=== PATIENT | male | born 1990 ===

== ENCOUNTER 2023-04-17 02:12 | Inpatient (IN) | payer OTHER ==
[2023-04-17] MEDS ORDERED: Fentanyl CADD 100 ML IV SCH (02:30)
[2023-04-17 02:33] LABS: #Eosinphils 0.1 thou/uL (0.0-0.7); #Monocytes 0.3 thou/uL (0.11-0.59); #Neutrophils 4.3 thou/uL (1.40-6.50); %Basophils 0.5 % (0.0-1.0); %Eosinophils 0.8 % (0.0-10.0); %Lymphocytes 22.1 % (21.0-51.0); %Neutrophils 71.1 % (42.0-75.0); Hematocrit 40.7 % (42.0-52.0); Hemoglobin 13.9 g/dL (14.0-18.0); Mean Corpuscular HGB CONC 34.2 g/dL (32.0-36.0); Mean Corpuscular Hemoglobin 28.8 pg (27.0-31.0); Mean Corpuscular Volume 84.3 fl (78.0-98.0); Mean Platelet Volume 9.1 fL (7.4-10.4); Platelet Count 174 10x3/uL (130-400); Red Blood Cell (RBC) Count 4.83 mill/uL (4.70-6.10)
[2023-04-17] MEDS ORDERED: Dextrose 50% Abboject 50 ML SYRINGE SLOW IVP PRN (02:40)
[2023-04-17] MEDS ORDERED: TETANUS, DIPHTHERIA TOX,ADULT (TDVAX) 0.5 ML VIAL IM ONE (02:40)
[2023-04-17] MEDS ORDERED: Glucagon 1 MG/ML KIT IM PRN (02:40)
[2023-04-17] MEDS ORDERED: Dextrose 5% in Water 1,000 ML IV PRN (02:40)
[2023-04-17] MEDS ORDERED: FENTANYL 500 MCG/10 ML VIAL 2,000 MCG in Sodium Chloride 0.9% 60 ML IV PRN (02:43)
[2023-04-17 02:46] LABS: Prothrombin Time 13.9 sec (12.0-14.7)
[2023-04-17 02:49] LABS: ALT (SGPT) 22 U/L (8-55); AST (SGOT) 30 U/L (5-34); Albumin 4.7 g/dL (3.5-5.0); Alcohol 269.9 mg/dL (Less than 10); Alkaline Phosphatase 77 U/L (40-110); Anion Gap 20 mmol/L (10-20); BUN (Urea Nitrogen) 15 mg/dL (8.9-20.6); Bilirubin, Total 0.5 mg/dL (0.2-1.2); Calc. Creatinine Clearance 0 mL/min (70-130); Calcium 8.9 mg/dL (7.8-10.44); Carbon Dioxide 16 mmol/L (22-29); Chloride 109 mmol/L (98-107); Estimated GFR 118; Globulin 2.6 g/dL (2.4-3.5); Glucose 144 mg/dL (70-105); Potassium 3.7 mmol/L (3.5-5.1); Protein, Total 7.3 g/dL (6.0-8.3); Sodium 141 mmol/L (136-145)
[2023-04-17] MEDS ORDERED: Boostrix 0.5 ML (Tdap) VIAL (>/=7 yrs of age) ONE (02:57)
[2023-04-17 03:01] LABS: PTT 22.3 sec (22.9-36.1)
[2023-04-17 03:09] LABS: Actual Bicarbonate (HCO3a) 19.3 mEq/L (22-28); Analyzer IN Cardio ER; Base Excess (BEa) -5.8 mEq/L (-2.0 to +3.0); CO2 Tension 36.9 mmHg (35.0-45.0); Calcium, Ionized (arterial) 1.15 mmol/L (1.12-1.30); Carboxyhemoglobin (COHb) 0.3 gm% (0.0-3.0); Hematocrit-ABG 44 % (42.0-52.0); Hemoglobin (Hb) 15.1 g/dL (14.0-18.0); O2 Tension (PaO2), arterial 338.1 mmHg (80.0-100.0); Potassium - ABG Lab 3.84 mmol/L (3.70-5.30); pH, Arterial 7.336 (7.35-7.45)
[2023-04-17] MEDS ORDERED: levETIRAcetam 500 MG/5 ML VIAL ONE (03:17)
[2023-04-17] MEDS ORDERED: manNITOL 20% 500 ML ONE (03:17)
[2023-04-17] MEDS ORDERED: Mannitol 12.5 GM/50 ML ONE (03:17)
[2023-04-17 03:18] LABS: ALV-art Gradient 328.775 mmHg (0-20); Puncture Site RRA
[2023-04-17] MEDS ORDERED: Thrombin 5000 UNITS/5 ML VIAL ONE ×2 (03:22→04:55)
[2023-04-17] MEDS ORDERED: Bacitracin Zinc Ointment 30 gm TUBE ONE (03:22)
[2023-04-17] MEDS ORDERED: Lidocaine 1% (PF) 30 ML VIAL ONE (03:25)
[2023-04-17] MEDS ORDERED: EPINEPHrine 1 MG/ML AMP ONE (03:25)
[2023-04-17] MEDS ORDERED: Rocuronium Bromide 50 MG/5 ML VIAL ONE (03:50)
[2023-04-17] MEDS ORDERED: Midazolam HCl 2 mg/2 ml Vial ONE (03:50)
[2023-04-17] MEDS ORDERED: Fentanyl 250 MCG/5 ML VIAL ONE (03:51)
[2023-04-17] MEDS ORDERED: PROPOFOL 200 MG/20 ML VIAL ONE (04:04)
[2023-04-17] MEDS ORDERED: Vecuronium 10 MG VIAL ONE (04:04)
[2023-04-17] MEDS ORDERED: Rocuronium Bromide 10 MG/ML (10ML VIAL) ONE (04:04)
[2023-04-17] MEDS ORDERED: Ventilator Sedation Protocol 1 EACH FS ONE (05:41)
[2023-04-17] MEDS ORDERED: Electrolyte Replacement Protocol 1 EACH FS PRN (05:45)
[2023-04-17] MEDS ORDERED: Propofol 1,000 MG/100 ML VIAL IV ONE (05:47)
[2023-04-17] MEDS ORDERED: Fentanyl BOLUS 250 ML IVPB PRN (06:00)
[2023-04-17] MEDS ORDERED: DISCONTINUE PREVIOUS NARCOTIC PAIN MEDICATIONS AND BENZODIAZEPINES FS SCH (06:00)
[2023-04-17] MEDS ORDERED: Propofol BOLUS 1,000 MG/100 ML VIAL IV PRN (06:00)
[2023-04-17] MEDS: Ipratropium/Albuterol 3 ML NEB NEB SCH ×3 (06:55→17:16)
[2023-04-17 07:31] LABS: Actual Bicarbonate (HCO3a) 16.9 mEq/L (22-28); Analyzer IN Cardio ER; Base Excess (BEa) -8.1 mEq/L (-2.0 to +3.0); CO2 Tension 33.4 mmHg (35.0-45.0); Calcium, Ionized (arterial) 1.14 mmol/L (1.12-1.30); Carboxyhemoglobin (COHb) 0.3 gm% (0.0-3.0); Hematocrit-ABG 42 % (42.0-52.0); Hemoglobin (Hb) 14.4 g/dL (14.0-18.0); O2 Tension (PaO2), arterial 148.3 mmHg (80.0-100.0); Potassium - ABG Lab 3.83 mmol/L (3.70-5.30); pH, Arterial 7.322 (7.35-7.45)
[2023-04-17] MEDS: Morphine 2 MG/ML VIAL SLOW IVP PRN (07:39)
[2023-04-17] MEDS: levETIRAcetam 500 MG/5 ML VIAL SLOW IVP SCH ×2 (07:40→21:30)
[2023-04-17] MEDS: Pantoprazole 40 MG VIAL IVP SCH (07:40)
[2023-04-17 07:44] LABS: Puncture Site Arterial Line
[2023-04-17] MEDS: Fentanyl CADD 100 ML IV SCH ×3 (08:02→23:08)
[2023-04-17] MEDS: Sodium Chloride 0.9% 1,000 ML IV SCH ×3 (08:47→21:58)
[2023-04-17] MEDS: CEFAZOLIN 2 GM in Sodium Chloride 0.9% 100 ML IVPB SCH ×3 (08:49→21:30)
[2023-04-17] MEDS: Propofol 1,000 MG/100 ML VIAL IV PRN ×5 (09:41→21:57)
[2023-04-17] MEDS ORDERED: Iopamidol-370 76% 500 ML MDV (1 ML CHARGE) ONE (10:43)
[2023-04-17 12:24] LABS: Anion Gap 17 mmol/L (10-20); BUN (Urea Nitrogen) 9 mg/dL (8.9-20.6); Calc. Creatinine Clearance 0 mL/min (70-130); Calcium 8.6 mg/dL (7.8-10.44); Carbon Dioxide 16 mmol/L (22-29); Chloride 110 mmol/L (98-107); Estimated GFR 123; Glucose 108 mg/dL (70-105); Potassium 3.8 mmol/L (3.5-5.1); Sodium 139 mmol/L (136-145)
[2023-04-17] MEDS ORDERED: Mannitol 12.5 GM/50 ML SLOW IVP PRN ×2 (12:38→20:40)
[2023-04-17] MEDS: niCARdipine 50 MG, Admixture Fee 1 EACH in Sodium Chloride 0.9% 250 ML 230 ML IV SCH ×3 (14:36→20:40)
[2023-04-17 16:03] LABS: Anion Gap 14 mmol/L (10-20); BUN (Urea Nitrogen) 9 mg/dL (8.9-20.6); Calc. Creatinine Clearance 195 mL/min (70-130); Calcium 8.5 mg/dL (7.8-10.44); Carbon Dioxide 21 mmol/L (22-29); Chloride 109 mmol/L (98-107); Estimated GFR 122; Glucose 129 mg/dL (70-105); Potassium 3.7 mmol/L (3.5-5.1); Sodium 140 mmol/L (136-145)
[2023-04-17 16:34] LABS: Amphetamine Not Detected (NotDetected); Barbiturates Screen Not Detected (NotDetected); Benzodiazepine Screen Not Detected (NotDetected); Cocaine Metabolite Screen Not Detected (NotDetected); Methadone Not Detected (NotDetected); Methamphetamine Not Detected (NotDetected); Opiate Screen Detected (NotDetected); Oxycodone Screen Not Detected (NotDetected); Phencyclidine (PCP) Not Detected (NotDetected); THC/Cannabinoid Screen Not Detected (NotDetected); Tricyclic Screen Not Detected (NotDetected)
[2023-04-17 16:36] LABS: Bacteria/HPF None Seen HPF (None Seen); Bilirubin Negative (Negative); Blood, Urine Negative (Negative); CAUTI Indications for Culture Alt mental st,lethar; Clarity Clear (Clear); Glucose, Urine (Dipstick) Normal (Negative); Ketone, Urine 60 mg/dL (Negative); Leukocyte 75 Leu/uL (Negative); Nitrite Negative (Negative); Protein, Urine (Dipstick) 30 mg/dL (Neg-Trace); RBC/HPF 0-3 HPF (0-3); Specific Gravity, Urine 1.039 (1.002-1.036); Squamous Epithelial None Seen HPF (0-3); Urobilinogen Normal mg/dL (Less than 2); pH, Urine 5.5 (5.0-9.0)
[2023-04-17 16:38] LABS: Urine Culture Reflex Yes Yes
[2023-04-17 17:42] LABS: Actual Bicarbonate (HCO3a) 20.6 mEq/L (22-28); Base Excess (BEa) -4.1 mEq/L (-2.0 to +3.0); CO2 Tension 36.6 mmHg (35.0-45.0); Calcium, Ionized (arterial) 1.12 mmol/L (1.12-1.30); Carboxyhemoglobin (COHb) 0.4 gm% (0.0-3.0); Hematocrit-ABG 39 % (42.0-52.0); Hemoglobin (Hb) 13.3 g/dL (14.0-18.0); O2 Tension (PaO2), arterial 70.5 mmHg (80.0-100.0); Potassium - ABG Lab 3.79 mmol/L (3.70-5.30); pH, Arterial 7.368 (7.35-7.45)
[2023-04-17 17:47] LABS: Puncture Site Arterial Line
[2023-04-17] MEDS ORDERED: cloNIDine 0.1 MG TAB PO SCH (18:00)
[2023-04-17] MEDS: cloNIDine 0.2 MG TAB PO SCH (18:16)
[2023-04-17 19:59] LABS: Anion Gap 13 mmol/L (10-20); BUN (Urea Nitrogen) 9 mg/dL (8.9-20.6); Calc. Creatinine Clearance 183 mL/min (70-130); Calcium 8.4 mg/dL (7.8-10.44); Carbon Dioxide 22 mmol/L (22-29); Chloride 109 mmol/L (98-107); Estimated GFR 120; Glucose 144 mg/dL (70-105); Potassium 3.8 mmol/L (3.5-5.1); Sodium 140 mmol/L (136-145)
[2023-04-18] MEDS: cloNIDine 0.2 MG TAB PO SCH ×4 (00:41→17:11)
[2023-04-18] MEDS: niCARdipine 50 MG, Admixture Fee 1 EACH in Sodium Chloride 0.9% 250 ML 230 ML IV SCH ×2 (01:19→22:23)
[2023-04-18 05:01] LABS: #Neutrophils 6.9 thou/uL (1.40-6.50); %Basophils 0.1 % (0.0-1.0); %Lymphocytes 8.9 % (21.0-51.0); %Monocytes 11.3 % (0.0-10.0); %Neutrophils 79.5 % (42.0-75.0); Mean Corpuscular HGB CONC 34.5 g/dL (32.0-36.0); Mean Corpuscular Hemoglobin 29.1 pg (27.0-31.0); Mean Corpuscular Volume 84.5 fl (78.0-98.0); Mean Platelet Volume 9.4 fL (7.4-10.4); Platelet Count 153 10x3/uL (130-400); RBC Distribution Width 11.8 % (11.5-14.5); Red Blood Cell (RBC) Count 3.74 mill/uL (4.70-6.10); White Blood Cell (WBC) Count 8.7 10x3/uL (4.8-10.8)
[2023-04-18 05:15] LABS: Hematocrit 31.6 % (42.0-52.0); Hemoglobin 10.9 g/dL (14.0-18.0)
[2023-04-18] MEDS: CEFAZOLIN 2 GM in Sodium Chloride 0.9% 100 ML IVPB SCH ×3 (05:24→22:50)
[2023-04-18] MEDS: Propofol 1,000 MG/100 ML VIAL IV PRN ×5 (05:24→20:59)
[2023-04-18 05:58] LABS: Anion Gap 12 mmol/L (10-20); BUN (Urea Nitrogen) 9 mg/dL (8.9-20.6); Calc. Creatinine Clearance 202 mL/min (70-130); Calcium 8.1 mg/dL (7.8-10.44); Carbon Dioxide 21 mmol/L (22-29); Chloride 109 mmol/L (98-107); Estimated GFR 123; Glucose 137 mg/dL (70-105); Magnesium 1.9 mg/dL (1.6-2.6); Phosphorus 2.1 mg/dL (2.3-4.7); Potassium 3.6 mmol/L (3.5-5.1); Sodium 138 mmol/L (136-145)
[2023-04-18] MEDS: Ipratropium/Albuterol 3 ML NEB NEB SCH ×3 (06:57→18:40)
[2023-04-18] MEDS ORDERED: Sodium Chloride 0.9% 1,000 ML IV SCH (07:00)
[2023-04-18 07:15] LABS: Actual Bicarbonate (HCO3a) 19.8 mEq/L (22-28); Base Excess (BEa) -2.4 mEq/L (-2.0 to +3.0); CO2 Tension 26.4 mmHg (35.0-45.0); Calcium, Ionized (arterial) 1.11 mmol/L (1.12-1.30); Carboxyhemoglobin (COHb) 0.1 gm% (0.0-3.0); Hematocrit-ABG 33 % (42.0-52.0); Hemoglobin (Hb) 11.2 g/dL (14.0-18.0); O2 Tension (PaO2), arterial 88.4 mmHg (80.0-100.0); Potassium - ABG Lab 3.53 mmol/L (3.70-5.30); pH, Arterial 7.493 (7.35-7.45)
[2023-04-18 07:21] LABS: Puncture Site Arterial Line
[2023-04-18] MEDS: Sodium Chloride 0.9% 1,000 ML IV SCH ×4 (07:54→22:24)
[2023-04-18] MEDS ORDERED: Magnesium 2 GM/50 ML(in water) 2 GM in Premix Bag 1 BAG IVPB SCH (08:00)
[2023-04-18] MEDS: levETIRAcetam 500 MG/5 ML VIAL SLOW IVP SCH ×2 (08:17→21:21)
[2023-04-18] MEDS: Pantoprazole 40 MG VIAL IVP SCH (08:17)
[2023-04-18] MEDS ORDERED: Calcium Chloride 13.6 MEQ in Sodium Chloride 0.9% 100 ML IVPB SCH (09:00)
[2023-04-18] MEDS ORDERED: Fentanyl CADD 100 ML ONE (09:10)
[2023-04-18] MEDS: Fentanyl CADD 100 ML IV SCH ×2 (09:13→21:38)
[2023-04-18] MEDS ORDERED: Potassium Phosphate 30 MMOL in Sodium Chloride 0.9% 250 ML 250 ML IVPB SCH (10:00)
[2023-04-18] MEDS ORDERED: Mannitol 12.5 GM/50 ML IV SCH (13:00)
[2023-04-18] MEDS ORDERED: NOREPINEPHRINE 8 MG/250 ML-D5W 250 ML IVPB SCH (16:15)
[2023-04-18] MEDS: Lorazepam 2 MG/ML VIAL SLOW IVP PRN ×3 (17:02→22:32)
[2023-04-18] MEDS: Mannitol 12.5 GM/50 ML SLOW IVP PRN ×2 (18:21→23:55)
[2023-04-18 18:44] LABS: Sodium 139 mmol/L (136-145)
[2023-04-18] MEDS ORDERED: Mannitol 12.5 GM/50 ML SLOW IVP PRN (19:00)
[2023-04-18] MEDS ORDERED: Furosemide 40 MG/4 ML VIAL SLOW IVP SCH (19:22)
[2023-04-18] MEDS ORDERED: Sterile Water 10 ML VIAL IVP PRN (22:06)
[2023-04-18] MEDS: Vecuronium 10 MG VIAL IVP PRN (22:14)
[2023-04-18 23:08] LABS: Anion Gap 14 mmol/L (10-20); BUN (Urea Nitrogen) 5 mg/dL (8.9-20.6); Calc. Creatinine Clearance 195 mL/min (70-130); Calcium 8.6 mg/dL (7.8-10.44); Carbon Dioxide 24 mmol/L (22-29); Chloride 107 mmol/L (98-107); Estimated GFR 122; Glucose 133 mg/dL (70-105); Potassium 3.7 mmol/L (3.5-5.1); Sodium 141 mmol/L (136-145)
[2023-04-18] MEDS: hydrALAZINE 20 MG/ML VIAL SLOW IVP PRN (23:08)
[2023-04-19] MEDS: Propofol 1,000 MG/100 ML VIAL IV PRN ×7 (00:14→20:59)
[2023-04-19] MEDS: cloNIDine 0.2 MG TAB PO SCH (00:30)
[2023-04-19] MEDS: Acetaminophen 325 MG TAB PO PRN (01:20)
[2023-04-19] MEDS: Vecuronium 10 MG VIAL IVP PRN (02:04)
[2023-04-19] MEDS: Lorazepam 2 MG/ML VIAL SLOW IVP PRN ×3 (02:04→23:52)
[2023-04-19 05:17] LABS: #Monocytes 0.9 thou/uL (0.11-0.59); #Neutrophils 7.5 thou/uL (1.40-6.50); %Basophils 0.2 % (0.0-1.0); %Lymphocytes 6.6 % (21.0-51.0); %Monocytes 10.1 % (0.0-10.0); %Neutrophils 82.7 % (42.0-75.0); Hematocrit 32.8 % (42.0-52.0); Hemoglobin 10.9 g/dL (14.0-18.0); Mean Corpuscular HGB CONC 33.2 g/dL (32.0-36.0); Mean Corpuscular Hemoglobin 28.8 pg (27.0-31.0); Mean Corpuscular Volume 86.5 fl (78.0-98.0); Mean Platelet Volume 9.6 fL (7.4-10.4); Platelet Count 161 10x3/uL (130-400); RBC Distribution Width 11.9 % (11.5-14.5); Red Blood Cell (RBC) Count 3.79 mill/uL (4.70-6.10)
[2023-04-19] MEDS: Fentanyl CADD 100 ML IV SCH ×3 (05:33→23:49)
[2023-04-19 05:39] LABS: Phosphorus 2.1 mg/dL (2.3-4.7)
[2023-04-19 05:45] LABS: Anion Gap 12 mmol/L (10-20); BUN (Urea Nitrogen) 6 mg/dL (8.9-20.6); Calc. Creatinine Clearance 192 mL/min (70-130); Calcium 8.5 mg/dL (7.8-10.44); Carbon Dioxide 26 mmol/L (22-29); Chloride 107 mmol/L (98-107); Estimated GFR 121; Glucose 132 mg/dL (70-105); Magnesium 2.2 mg/dL (1.6-2.6); Potassium 3.7 mmol/L (3.5-5.1); Sodium 141 mmol/L (136-145)
[2023-04-19] MEDS: cloNIDine 0.1 MG TAB PO SCH ×4 (06:03→22:43)
[2023-04-19] MEDS: CEFAZOLIN 2 GM in Sodium Chloride 0.9% 100 ML IVPB SCH ×3 (06:20→21:00)
[2023-04-19] MEDS: Ipratropium/Albuterol 3 ML NEB NEB SCH ×3 (07:14→18:58)
[2023-04-19] MEDS: Morphine 2 MG/ML VIAL SLOW IVP PRN (07:38)
[2023-04-19] MEDS: Mannitol 12.5 GM/50 ML SLOW IVP PRN ×3 (07:56→19:27)
[2023-04-19 08:20] LABS: Base Excess (BEa) 1.2 mEq/L (-2.0 to +3.0); CO2 Tension 41.6 mmHg (35.0-45.0); Calcium, Ionized (arterial) 1.12 mmol/L (1.12-1.30); Carboxyhemoglobin (COHb) 0.3 gm% (0.0-3.0); Hematocrit-ABG 33 % (42.0-52.0); Hemoglobin (Hb) 11.1 g/dL (14.0-18.0); O2 Tension (PaO2), arterial 121.6 mmHg (80.0-100.0); Potassium - ABG Lab 3.44 mmol/L (3.70-5.30); pH, Arterial 7.413 (7.35-7.45)
[2023-04-19 08:21] LABS: Puncture Site Arterial Line
[2023-04-19] MEDS: levETIRAcetam 500 MG/5 ML VIAL SLOW IVP SCH ×2 (09:44→21:00)
[2023-04-19] MEDS: Pantoprazole 40 MG VIAL IVP SCH (09:44)
[2023-04-19] MEDS: Sodium Chloride 0.9% 1,000 ML IV SCH ×3 (09:57→23:42)
[2023-04-19 12:14] LABS: Anion Gap 9 mmol/L (10-20); BUN (Urea Nitrogen) 6 mg/dL (8.9-20.6); Calc. Creatinine Clearance 215 mL/min (70-130); Calcium 8.3 mg/dL (7.8-10.44); Carbon Dioxide 27 mmol/L (22-29); Chloride 109 mmol/L (98-107); Estimated GFR 126; Glucose 99 mg/dL (70-105); Potassium 3.8 mmol/L (3.5-5.1); Sodium 141 mmol/L (136-145)
[2023-04-19] MEDS ORDERED: Furosemide 40 MG/4 ML VIAL SLOW IVP SCH (13:45)
[2023-04-19] MEDS ORDERED: Hydrocortisone Sod Succ/PF 100 mg/2 ml Vial IVP SCH (16:15)
[2023-04-19 18:32] LABS: Sodium 141 mmol/L (136-145)
[2023-04-19] MEDS: Hydrocortisone Sod Succ/PF 100 mg/2 ml Vial IVP SCH (21:41)
[2023-04-19] MEDS: hydrALAZINE 20 MG/ML VIAL SLOW IVP PRN (23:41)
[2023-04-20] MEDS: Mannitol 12.5 GM/50 ML SLOW IVP PRN ×3 (00:57→13:43)
[2023-04-20 00:58] LABS: Sodium 145 mmol/L (136-145)
[2023-04-20] MEDS: Propofol 1,000 MG/100 ML VIAL IV PRN ×7 (02:22→19:52)
[2023-04-20] MEDS: Acetaminophen 325 MG TAB PO PRN (02:37)
[2023-04-20] MEDS: Lorazepam 2 MG/ML VIAL SLOW IVP PRN ×4 (02:46→12:05)
[2023-04-20 03:42] LABS: #Monocytes 0.8 thou/uL (0.11-0.59); #Neutrophils 7.1 thou/uL (1.40-6.50); %Basophils 0.1 % (0.0-1.0); %Eosinophils 0.1 % (0.0-10.0); %Lymphocytes 3.9 % (21.0-51.0); %Monocytes 9.3 % (0.0-10.0); Mean Corpuscular HGB CONC 33.3 g/dL (32.0-36.0); Mean Corpuscular Hemoglobin 28.9 pg (27.0-31.0); Mean Corpuscular Volume 86.6 fl (78.0-98.0); Mean Platelet Volume 9.6 fL (7.4-10.4); Platelet Count 169 10x3/uL (130-400); Red Blood Cell (RBC) Count 3.81 mill/uL (4.70-6.10); White Blood Cell (WBC) Count 8.3 10x3/uL (4.8-10.8)
[2023-04-20 04:19] LABS: ALT (SGPT) 11 U/L (8-55); AST (SGOT) 20 U/L (5-34); Albumin 3.5 g/dL (3.5-5.0); Alkaline Phosphatase 58 U/L (40-110); Anion Gap 10 mmol/L (10-20); BUN (Urea Nitrogen) 7 mg/dL (8.9-20.6); Bilirubin, Total 0.4 mg/dL (0.2-1.2); Calc. Creatinine Clearance 212 mL/min (70-130); Calcium 9.1 mg/dL (7.8-10.44); Carbon Dioxide 28 mmol/L (22-29); Chloride 108 mmol/L (98-107); Estimated GFR 125; Globulin 2.7 g/dL (2.4-3.5); Glucose 142 mg/dL (70-105); Magnesium 2.3 mg/dL (1.6-2.6); Phosphorus 3.2 mg/dL (2.3-4.7); Potassium 3.7 mmol/L (3.5-5.1); Protein, Total 6.2 g/dL (6.0-8.3); Sodium 142 mmol/L (136-145)
[2023-04-20] MEDS: cloNIDine 0.1 MG TAB PO SCH ×5 (05:30→21:24)
[2023-04-20] MEDS: Acetaminophen 500 MG TAB PO PRN (05:41)
[2023-04-20] MEDS: CEFAZOLIN 2 GM in Sodium Chloride 0.9% 100 ML IVPB SCH ×3 (05:49→21:22)
[2023-04-20] MEDS: Hydrocortisone Sod Succ/PF 100 mg/2 ml Vial IVP SCH ×3 (06:00→22:31)
[2023-04-20] MEDS: Morphine 2 MG/ML VIAL SLOW IVP PRN ×3 (06:03→07:35)
[2023-04-20] MEDS: Ipratropium/Albuterol 3 ML NEB NEB SCH ×3 (06:26→19:06)
[2023-04-20 06:33] LABS: Sodium 144 mmol/L (136-145)
[2023-04-20 06:41] LABS: Actual Bicarbonate (HCO3a) 26.7 mEq/L (22-28); Base Excess (BEa) 2.1 mEq/L (-2.0 to +3.0); CO2 Tension 41.7 mmHg (35.0-45.0); Calcium, Ionized (arterial) 1.14 mmol/L (1.12-1.30); Carboxyhemoglobin (COHb) 0.2 gm% (0.0-3.0); Hematocrit-ABG 34 % (42.0-52.0); Hemoglobin (Hb) 11.5 g/dL (14.0-18.0); Potassium - ABG Lab 3.73 mmol/L (3.70-5.30); pH, Arterial 7.424 (7.35-7.45)
[2023-04-20 06:43] LABS: ALV-art Gradient 151.075 mmHg (0-20); Puncture Site Arterial Line
[2023-04-20] MEDS: hydrALAZINE 20 MG/ML VIAL SLOW IVP PRN ×2 (06:55→11:27)
[2023-04-20] MEDS: Fentanyl CADD 100 ML IV SCH ×2 (07:26→16:19)
[2023-04-20] MEDS ORDERED: Sodium Chloride 0.9% 15 ML NEB ONE (07:57)
[2023-04-20] MEDS: Sodium Chloride 0.9% 20 ML ONE (08:01)
[2023-04-20] MEDS: levETIRAcetam 500 MG/5 ML VIAL SLOW IVP SCH ×2 (09:11→20:43)
[2023-04-20] MEDS: Pantoprazole 40 MG VIAL IVP SCH (09:11)
[2023-04-20] MEDS: niCARdipine 50 MG, Admixture Fee 1 EACH in Sodium Chloride 0.9% 250 ML 230 ML IV SCH ×2 (11:37→14:22)
[2023-04-20 11:54] LABS: Anion Gap 11 mmol/L (10-20); BUN (Urea Nitrogen) 6 mg/dL (8.9-20.6); Calc. Creatinine Clearance 225 mL/min (70-130); Calcium 8.8 mg/dL (7.6-10.4); Carbon Dioxide 27 mmol/L (22-29); Chloride 110 mmol/L (98-107); Estimated GFR 128; Glucose 125 mg/dL (70-105); Potassium 3.7 mmol/L (3.5-5.1); Sodium 144 mmol/L (136-145)
[2023-04-20] MEDS ORDERED: Mannitol 12.5 GM/50 ML SLOW IVP SCH (12:00)
[2023-04-20] MEDS ORDERED: Furosemide 40 MG/4 ML VIAL SLOW IVP SCH ×2 (12:00→12:30)
[2023-04-20] MEDS: Vecuronium 10 MG VIAL IVP PRN (12:29)
[2023-04-20] MEDS ORDERED: Mannitol 12.5 GM/50 ML IV PRN (13:10)
[2023-04-20] MEDS: Sodium Chloride 0.9% 1,000 ML IV SCH ×2 (13:35→18:30)
[2023-04-20] MEDS ORDERED: Piperacillin/Tazobactam 3.375 GM in Sodium Chloride 0.9% 100 ML IVPB SCH (13:45)
[2023-04-20] MEDS: Mannitol 12.5 GM/50 ML SLOW IVP SCH ×2 (15:15→19:56)
[2023-04-20] MEDS: Furosemide 40 MG/4 ML VIAL SLOW IVP SCH ×2 (15:16→19:55)
[2023-04-20] MEDS: HumaLOG 300 UNITS/3 ML VIAL SC PRN (16:00)
[2023-04-20 16:45] LABS: Anion Gap 14 mmol/L (10-20); BUN (Urea Nitrogen) 7 mg/dL (8.9-20.6); Calc. Creatinine Clearance 193 mL/min (70-130); Calcium 9.5 mg/dL (7.8-10.44); Carbon Dioxide 29 mmol/L (22-29); Chloride 103 mmol/L (98-107); Estimated GFR 122; Glucose 195 mg/dL (70-105); Potassium 3.3 mmol/L (3.5-5.1); Sodium 143 mmol/L (136-145)
[2023-04-20] MEDS ORDERED: Piperacillin/Tazobactam 4.5 GM in Sodium Chloride 0.9% 100 ML IVPB SCH (18:00)
[2023-04-20] MEDS: Potassium Chloride 20 MEQ in Premix Bag 1 BAG IVPB SCH ×2 (18:25→21:23)
[2023-04-20] MEDS: Piperacillin/Tazobactam 3.375 GM in Sodium Chloride 0.9% 100 ML IVPB SCH (19:51)
[2023-04-20] MEDS: Senokot S 8.6-50 MG TAB PO SCH (20:43)
[2023-04-20 22:26] LABS: Anion Gap 15 mmol/L (10-20); BUN (Urea Nitrogen) 11 mg/dL (8.9-20.6); Calc. Creatinine Clearance 188 mL/min (70-130); Calcium 9.3 mg/dL (7.8-10.44); Carbon Dioxide 33 mmol/L (22-29); Chloride 104 mmol/L (98-107); Estimated GFR 121; Glucose 133 mg/dL (70-105); Potassium 4.6 mmol/L (3.5-5.1); Sodium 147 mmol/L (136-145)
[2023-04-21] MEDS: Furosemide 40 MG/4 ML VIAL SLOW IVP SCH ×3 (00:08→09:42)
[2023-04-21] MEDS: Mannitol 12.5 GM/50 ML SLOW IVP SCH ×4 (00:08→09:42)
[2023-04-21] MEDS: Piperacillin/Tazobactam 3.375 GM in Sodium Chloride 0.9% 100 ML IVPB SCH ×3 (03:58→19:51)
[2023-04-21] MEDS: cloNIDine 0.1 MG TAB PO SCH (04:02)
[2023-04-21 04:11] LABS: #Eosinphils 0.1 thou/uL (0.0-0.7); #Monocytes 0.7 thou/uL (0.11-0.59); #Neutrophils 5.8 thou/uL (1.40-6.50); %Basophils 0.3 % (0.0-1.0); %Eosinophils 0.8 % (0.0-10.0); %Lymphocytes 7.6 % (21.0-51.0); %Monocytes 9.3 % (0.0-10.0); %Neutrophils 81.7 % (42.0-75.0); Hematocrit 33.7 % (42.0-52.0); Hemoglobin 11.1 g/dL (14.0-18.0); Mean Corpuscular HGB CONC 32.9 g/dL (32.0-36.0); Mean Corpuscular Hemoglobin 28.8 pg (27.0-31.0); Mean Corpuscular Volume 87.5 fl (78.0-98.0); Mean Platelet Volume 9.5 fL (7.4-10.4); Platelet Count 199 10x3/uL (130-400); RBC Distribution Width 11.9 % (11.5-14.5); Red Blood Cell (RBC) Count 3.85 mill/uL (4.70-6.10); White Blood Cell (WBC) Count 7.1 10x3/uL (4.8-10.8)
[2023-04-21] MEDS: Fentanyl CADD 100 ML IV SCH (04:14)
[2023-04-21 04:35] LABS: Anion Gap 14 mmol/L (10-20); BUN (Urea Nitrogen) 15 mg/dL (8.9-20.6); Calc. Creatinine Clearance 184 mL/min (70-130); Calcium 9.5 mg/dL (7.8-10.44); Carbon Dioxide 33 mmol/L (22-29); Chloride 106 mmol/L (98-107); Estimated GFR 120; Glucose 133 mg/dL (70-105); Potassium 3.9 mmol/L (3.5-5.1); Sodium 149 mmol/L (136-145)
[2023-04-21] MEDS: CEFAZOLIN 2 GM in Sodium Chloride 0.9% 100 ML IVPB SCH ×3 (05:45→22:16)
[2023-04-21] MEDS: Hydrocortisone Sod Succ/PF 100 mg/2 ml Vial IVP SCH (05:46)
[2023-04-21] MEDS: Propofol 1,000 MG/100 ML VIAL IV PRN ×5 (05:54→22:16)
[2023-04-21] MEDS: Ipratropium/Albuterol 3 ML NEB NEB SCH ×3 (07:01→19:01)
[2023-04-21 07:11] LABS: Actual Bicarbonate (HCO3a) 32.4 mEq/L (22-28); Base Excess (BEa) 8.2 mEq/L (-2.0 to +3.0); CO2 Tension 43.4 mmHg (35.0-45.0); Calcium, Ionized (arterial) 1.12 mmol/L (1.12-1.30); Carboxyhemoglobin (COHb) 0.5 gm% (0.0-3.0); Hematocrit-ABG 36 % (42.0-52.0); Hemoglobin (Hb) 12.4 g/dL (14.0-18.0); O2 Tension (PaO2), arterial 95.8 mmHg (80.0-100.0); Potassium - ABG Lab 3.55 mmol/L (3.70-5.30); pH, Arterial 7.491 (7.35-7.45)
[2023-04-21 07:13] LABS: Puncture Site Arterial Line
[2023-04-21] MEDS: Acetaminophen 500 MG TAB PO PRN (07:35)
[2023-04-21 08:55] LABS: Anion Gap 15 mmol/L (10-20); BUN (Urea Nitrogen) 15 mg/dL (8.9-20.6); Calc. Creatinine Clearance 0 mL/min (70-130); Calcium 9.7 mg/dL (7.8-10.44); Carbon Dioxide 35 mmol/L (22-29); Chloride 103 mmol/L (98-107); Estimated GFR 119; Glucose 147 mg/dL (70-105); Potassium 3.5 mmol/L (3.5-5.1); Sodium 149 mmol/L (136-145)
[2023-04-21] MEDS: Polyethylene Glycol 3350 17 GM Packet PO SCH (09:13)
[2023-04-21] MEDS: Potassium Chloride 20 MEQ in Premix Bag 1 BAG IVPB SCH ×2 (09:13→12:25)
[2023-04-21] MEDS: levETIRAcetam 500 MG/5 ML VIAL SLOW IVP SCH ×2 (09:14→20:00)
[2023-04-21] MEDS: Senokot S 8.6-50 MG TAB PO SCH ×2 (09:14→20:00)
[2023-04-21] MEDS: Pantoprazole 40 MG VIAL IVP SCH (09:14)
[2023-04-21] MEDS: Sodium Chloride 0.9% 1,000 ML IV SCH (14:10)
[2023-04-21] MEDS ORDERED: Fentanyl CADD 100 ML ONE (16:56)
[2023-04-21 21:36] LABS: Anion Gap 14 mmol/L (10-20); BUN (Urea Nitrogen) 19 mg/dL (8.9-20.6); Calc. Creatinine Clearance 0 mL/min (70-130); Carbon Dioxide 33 mmol/L (22-29); Chloride 106 mmol/L (98-107); Sodium 149 mmol/L (136-145)
[2023-04-21 21:37] LABS: Calcium 9.2 mg/dL (7.8-10.44); Estimated GFR 123; Glucose 135 mg/dL (70-105)
[2023-04-22] MEDS: Piperacillin/Tazobactam 3.375 GM in Sodium Chloride 0.9% 100 ML IVPB SCH ×3 (03:39→20:26)
[2023-04-22] MEDS: Propofol 1,000 MG/100 ML VIAL IV PRN ×6 (03:40→23:35)
[2023-04-22 04:25] LABS: #Eosinphils 0.2 thou/uL (0.0-0.7); #Monocytes 0.5 thou/uL (0.11-0.59); #Neutrophils 4.1 thou/uL (1.40-6.50); %Basophils 0.4 % (0.0-1.0); %Eosinophils 3.3 % (0.0-10.0); %Lymphocytes 16.5 % (21.0-51.0); %Monocytes 8.1 % (0.0-10.0); %Neutrophils 71.3 % (42.0-75.0); Hematocrit 29.3 % (42.0-52.0); Hemoglobin 9.2 g/dL (14.0-18.0); Mean Corpuscular HGB CONC 31.4 g/dL (32.0-36.0); Mean Corpuscular Hemoglobin 28.2 pg (27.0-31.0); Mean Corpuscular Volume 89.9 fl (78.0-98.0); Mean Platelet Volume 9.5 fL (7.4-10.4); Platelet Count 182 10x3/uL (130-400); RBC Distribution Width 11.9 % (11.5-14.5); Red Blood Cell (RBC) Count 3.26 mill/uL (4.70-6.10); White Blood Cell (WBC) Count 5.7 10x3/uL (4.8-10.8)
[2023-04-22] MEDS: Fentanyl CADD 100 ML IV SCH ×2 (04:41→23:35)
[2023-04-22] MEDS: CEFAZOLIN 2 GM in Sodium Chloride 0.9% 100 ML IVPB SCH (04:59)
[2023-04-22 05:02] LABS: Chloride 107 mmol/L (98-107); Potassium 3.8 mmol/L (3.5-5.1); Sodium 146 mmol/L (136-145)
[2023-04-22] MEDS: Sodium Chloride 0.9% 1,000 ML IV SCH (05:02)
[2023-04-22 05:03] LABS: Anion Gap 9 mmol/L (10-20); BUN (Urea Nitrogen) 20 mg/dL (8.9-20.6); Calc. Creatinine Clearance 0 mL/min (70-130); Calcium 9.1 mg/dL (7.8-10.44); Carbon Dioxide 34 mmol/L (22-29); Estimated GFR 124; Glucose 110 mg/dL (70-105)
[2023-04-22 07:16] LABS: Actual Bicarbonate (HCO3a) 31.7 mEq/L (22-28); Base Excess (BEa) 7.1 mEq/L (-2.0 to +3.0); CO2 Tension 45.7 mmHg (35.0-45.0); Calcium, Ionized (arterial) 1.18 mmol/L (1.12-1.30); Carboxyhemoglobin (COHb) 0.3 gm% (0.0-3.0); Hematocrit-ABG 29 % (42.0-52.0); Hemoglobin (Hb) 9.9 g/dL (14.0-18.0); O2 Tension (PaO2), arterial 136.8 mmHg (80.0-100.0); Potassium - ABG Lab 3.83 mmol/L (3.70-5.30); pH, Arterial 7.459 (7.35-7.45)
[2023-04-22 07:17] LABS: ALV-art Gradient 91.275 mmHg (0-20); Puncture Site Arterial Line
[2023-04-22] MEDS: Ipratropium/Albuterol 3 ML NEB NEB SCH ×3 (07:18→18:42)
[2023-04-22] MEDS: levETIRAcetam 500 MG/5 ML VIAL SLOW IVP SCH ×2 (08:28→21:46)
[2023-04-22] MEDS: Pantoprazole 40 MG VIAL IVP SCH (08:28)
[2023-04-22] MEDS: Senokot S 8.6-50 MG TAB PO SCH ×2 (08:28→21:46)
[2023-04-22] MEDS: Polyethylene Glycol 3350 17 GM Packet PO SCH (08:29)
[2023-04-22] MEDS: Mannitol 12.5 GM/50 ML SLOW IVP SCH ×2 (12:12→12:16)
[2023-04-22] MEDS ORDERED: Fentanyl CADD 100 ML ONE (12:44)
[2023-04-22 15:43] LABS: Sodium 146 mmol/L (136-145)
[2023-04-23] MEDS: Acetaminophen 500 MG TAB PO PRN (01:59)
[2023-04-23] MEDS: Sodium Chloride 0.9% 1,000 ML IV SCH ×2 (02:00→10:01)
[2023-04-23] MEDS: Propofol 1,000 MG/100 ML VIAL IV PRN ×7 (02:26→20:25)
[2023-04-23 04:11] LABS: #Eosinphils 0.2 thou/uL (0.0-0.7); #Monocytes 0.5 thou/uL (0.11-0.59); #Neutrophils 4.2 thou/uL (1.40-6.50); %Basophils 0.5 % (0.0-1.0); %Eosinophils 3.1 % (0.0-10.0); %Lymphocytes 15.5 % (21.0-51.0); %Monocytes 7.8 % (0.0-10.0); %Neutrophils 72.1 % (42.0-75.0); Hematocrit 29.2 % (42.0-52.0); Hemoglobin 9.2 g/dL (14.0-18.0); Mean Corpuscular HGB CONC 31.5 g/dL (32.0-36.0); Mean Corpuscular Hemoglobin 28.6 pg (27.0-31.0); Mean Corpuscular Volume 90.7 fl (78.0-98.0); Mean Platelet Volume 9.5 fL (7.4-10.4); Platelet Count 197 10x3/uL (130-400); RBC Distribution Width 11.8 % (11.5-14.5); Red Blood Cell (RBC) Count 3.22 mill/uL (4.70-6.10); White Blood Cell (WBC) Count 5.8 10x3/uL (4.8-10.8)
[2023-04-23 04:35] LABS: Anion Gap 13 mmol/L (10-20); BUN (Urea Nitrogen) 16 mg/dL (8.9-20.6); Calc. Creatinine Clearance 221 mL/min (70-130); Calcium 9.6 mg/dL (7.8-10.44); Carbon Dioxide 26 mmol/L (22-29); Chloride 110 mmol/L (98-107); Estimated GFR 128; Glucose 130 mg/dL (70-105); Potassium 4.2 mmol/L (3.5-5.1); Sodium 145 mmol/L (136-145)
[2023-04-23] MEDS: Piperacillin/Tazobactam 3.375 GM in Sodium Chloride 0.9% 100 ML IVPB SCH ×3 (05:22→19:57)
[2023-04-23] MEDS: Ipratropium/Albuterol 3 ML NEB NEB SCH ×3 (06:51→18:53)
[2023-04-23] MEDS: Lorazepam 2 MG/ML VIAL SLOW IVP PRN ×4 (07:16→15:45)
[2023-04-23] MEDS: hydrALAZINE 20 MG/ML VIAL SLOW IVP PRN (07:16)
[2023-04-23 07:32] LABS: Actual Bicarbonate (HCO3a) 29.3 mEq/L (22-28); CO2 Tension 47.2 mmHg (35.0-45.0); Calcium, Ionized (arterial) 1.16 mmol/L (1.12-1.30); Carboxyhemoglobin (COHb) 0.3 gm% (0.0-3.0); Hematocrit-ABG 35 % (42.0-52.0); Hemoglobin (Hb) 11.8 g/dL (14.0-18.0); O2 Tension (PaO2), arterial 150.4 mmHg (80.0-100.0); Potassium - ABG Lab 3.87 mmol/L (3.70-5.30); pH, Arterial 7.411 (7.35-7.45)
[2023-04-23 07:33] LABS: Peep/CPAP 7.5 cmH2O; Puncture Site ALINE
[2023-04-23] MEDS ORDERED: Acetaminophen 325 MG TAB PO PRN (08:00)
[2023-04-23] MEDS: Fentanyl CADD 100 ML IV SCH ×2 (08:13→19:00)
[2023-04-23] MEDS ORDERED: Mannitol 12.5 GM/50 ML IV SCH (08:30)
[2023-04-23] MEDS: levETIRAcetam 500 MG/5 ML VIAL SLOW IVP SCH ×2 (08:36→20:26)
[2023-04-23] MEDS: Pantoprazole 40 MG VIAL IVP SCH (08:36)
[2023-04-23] MEDS: Polyethylene Glycol 3350 17 GM Packet PO SCH (08:36)
[2023-04-23] MEDS: Senokot S 8.6-50 MG TAB PO SCH ×2 (08:37→20:26)
[2023-04-23 11:29] LABS: Anion Gap 11 mmol/L (10-20); BUN (Urea Nitrogen) 14 mg/dL (8.9-20.6); Calc. Creatinine Clearance 222 mL/min (70-130); Calcium 9.4 mg/dL (7.8-10.44); Carbon Dioxide 29 mmol/L (22-29); Chloride 107 mmol/L (98-107); Estimated GFR 127; Glucose 123 mg/dL (70-105); Potassium 4.2 mmol/L (3.5-5.1); Sodium 143 mmol/L (136-145)
[2023-04-23] MEDS: Acetaminophen 650 MG/20.3 ML UDCUP PO PRN (23:14)
[2023-04-24] MEDS: Propofol 1,000 MG/100 ML VIAL IV PRN ×6 (00:26→20:48)
[2023-04-24] MEDS: Piperacillin/Tazobactam 3.375 GM in Sodium Chloride 0.9% 100 ML IVPB SCH ×3 (04:01→19:54)
[2023-04-24] MEDS: Fentanyl CADD 100 ML IV SCH ×2 (04:01→16:21)
[2023-04-24 05:16] LABS: #Eosinphils 0.2 thou/uL (0.0-0.7); #Monocytes 0.6 thou/uL (0.11-0.59); #Neutrophils 4.8 thou/uL (1.40-6.50); %Basophils 0.6 % (0.0-1.0); %Eosinophils 2.2 % (0.0-10.0); %Lymphocytes 13.1 % (21.0-51.0); %Monocytes 9.5 % (0.0-10.0); %Neutrophils 70.8 % (42.0-75.0); Hematocrit 29.5 % (42.0-52.0); Hemoglobin 9.8 g/dL (14.0-18.0); Mean Corpuscular HGB CONC 33.2 g/dL (32.0-36.0); Mean Corpuscular Hemoglobin 28.6 pg (27.0-31.0); Mean Platelet Volume 9.4 fL (7.4-10.4); Platelet Count 224 10x3/uL (130-400); RBC Distribution Width 11.6 % (11.5-14.5); Red Blood Cell (RBC) Count 3.43 mill/uL (4.70-6.10); White Blood Cell (WBC) Count 6.8 10x3/uL (4.8-10.8)
[2023-04-24 05:44] LABS: Anion Gap 12 mmol/L (10-20); BUN (Urea Nitrogen) 14 mg/dL (8.9-20.6); Calc. Creatinine Clearance 235 mL/min (70-130); Calcium 9.3 mg/dL (7.8-10.44); Carbon Dioxide 27 mmol/L (22-29); Chloride 105 mmol/L (98-107); Estimated GFR 130; Glucose 117 mg/dL (70-105); Sodium 140 mmol/L (136-145)
[2023-04-24] MEDS: Ipratropium/Albuterol 3 ML NEB NEB SCH ×3 (07:42→19:12)
[2023-04-24] MEDS: levETIRAcetam 500 MG/5 ML VIAL SLOW IVP SCH ×2 (07:48→20:48)
[2023-04-24] MEDS: Senokot S 8.6-50 MG TAB PO SCH ×2 (07:48→20:48)
[2023-04-24] MEDS: Acetaminophen 650 MG/20.3 ML UDCUP PO PRN ×3 (07:48→21:44)
[2023-04-24] MEDS: Polyethylene Glycol 3350 17 GM Packet PO SCH (07:49)
[2023-04-24] MEDS: Pantoprazole 40 MG VIAL IVP SCH (07:50)
[2023-04-24] MEDS: Sodium Chloride 0.9% 1,000 ML IV SCH (09:20)
[2023-04-24] MEDS: hydrALAZINE 20 MG/ML VIAL SLOW IVP PRN (12:55)
[2023-04-24] MEDS: niCARdipine 50 MG, Admixture Fee 1 EACH in Sodium Chloride 0.9% 250 ML 230 ML IV SCH (14:36)
[2023-04-24 17:06] LABS: Anion Gap 10 mmol/L (10-20); BUN (Urea Nitrogen) 14 mg/dL (8.9-20.6); Calc. Creatinine Clearance 205 mL/min (70-130); Calcium 9.5 mg/dL (7.8-10.44); Carbon Dioxide 25 mmol/L (22-29); Chloride 105 mmol/L (98-107); Estimated GFR 125; Glucose 181 mg/dL (70-105); Potassium 3.8 mmol/L (3.5-5.1); Sodium 136 mmol/L (136-145)
[2023-04-24] MEDS: Lorazepam 2 MG/ML VIAL SLOW IVP PRN (17:34)
[2023-04-24] MEDS: HumaLOG 300 UNITS/3 ML VIAL SC PRN (18:10)
[2023-04-24 21:59] LABS: Sodium 141 mmol/L (136-145)
[2023-04-25] MEDS: Propofol 1,000 MG/100 ML VIAL IV PRN ×8 (00:40→23:37)
[2023-04-25] MEDS: Lorazepam 2 MG/ML VIAL SLOW IVP PRN ×4 (02:56→22:46)
[2023-04-25] MEDS: Acetaminophen 650 MG/20.3 ML UDCUP PO PRN ×2 (02:59→22:29)
[2023-04-25] MEDS: Piperacillin/Tazobactam 3.375 GM in Sodium Chloride 0.9% 100 ML IVPB SCH ×3 (04:10→20:09)
[2023-04-25] MEDS: Fentanyl CADD 100 ML IV SCH ×2 (05:02→17:07)
[2023-04-25 05:05] LABS: Hematocrit 34.1 % (42.0-52.0); Hemoglobin 11.3 g/dL (14.0-18.0); Mean Corpuscular HGB CONC 33.1 g/dL (32.0-36.0); Mean Corpuscular Hemoglobin 28.4 pg (27.0-31.0); Mean Corpuscular Volume 85.7 fl (78.0-98.0); Mean Platelet Volume 9.2 fL (7.4-10.4); Platelet Count 281 10x3/uL (130-400); RBC Distribution Width 11.9 % (11.5-14.5); Red Blood Cell (RBC) Count 3.98 mill/uL (4.70-6.10); White Blood Cell (WBC) Count 8.5 10x3/uL (4.8-10.8)
[2023-04-25 05:50] LABS: Anion Gap 11 mmol/L (10-20); BUN (Urea Nitrogen) 15 mg/dL (8.9-20.6); Calc. Creatinine Clearance 217 mL/min (70-130); Calcium 9.4 mg/dL (7.8-10.44); Carbon Dioxide 26 mmol/L (22-29); Chloride 105 mmol/L (98-107); Estimated GFR 127; Glucose 114 mg/dL (70-105); Potassium 4.1 mmol/L (3.5-5.1); Sodium 138 mmol/L (136-145)
[2023-04-25 05:54] LABS: Manual Diff?? YES
[2023-04-25 05:55] LABS: Delete Auto Diff?? YES
[2023-04-25] MEDS: Ipratropium/Albuterol 3 ML NEB NEB SCH ×3 (07:19→19:30)
[2023-04-25 07:33] LABS: Actual Bicarbonate (HCO3a) 23.8 mEq/L (22-28); Base Excess (BEa) -0.3 mEq/L (-2.0 to +3.0); CO2 Tension 37.2 mmHg (35.0-45.0); Calcium, Ionized (arterial) 1.22 mmol/L (1.12-1.30); Carboxyhemoglobin (COHb) 0.3 gm% (0.0-3.0); Hematocrit-ABG 40 % (42.0-52.0); Hemoglobin (Hb) 13.7 g/dL (14.0-18.0); O2 Tension (PaO2), arterial 111.8 mmHg (80.0-100.0); Potassium - ABG Lab 3.92 mmol/L (3.70-5.30); pH, Arterial 7.424 (7.35-7.45)
[2023-04-25 07:34] LABS: Puncture Site Arterial Line
[2023-04-25 07:35] LABS: Peep/CPAP 7.5 cmH2O
[2023-04-25 07:59] LABS: Band 15 % (5-11); CellaVision Operator ID LAB.CLH1; Eosinophils 5 % (0-10); Hypochromia SLIGHT = 6-15 cells HPF (0-5); Lymphocytes 14 % (21-51); Monocytes 12 % (0-10); Myelocyte 4 % (0-0); Neutrophil 49 % (42-75); Platelet Adequacy Comment Platelets Normal; Polychromasia SLIGHT = 2-3 cells HPF (0-2); Total Cell Count 100
[2023-04-25] MEDS: levETIRAcetam 500 MG/5 ML VIAL SLOW IVP SCH ×2 (09:34→20:09)
[2023-04-25] MEDS: Senokot S 8.6-50 MG TAB PO SCH ×2 (09:35→20:09)
[2023-04-25] MEDS: Pantoprazole 40 MG VIAL IVP SCH (09:35)
[2023-04-25] MEDS: Polyethylene Glycol 3350 17 GM Packet PO SCH (09:35)
[2023-04-26] MEDS: Lorazepam 2 MG/ML VIAL SLOW IVP PRN ×5 (01:35→20:06)
[2023-04-26] MEDS: Propofol 1,000 MG/100 ML VIAL IV PRN ×6 (03:08→20:18)
[2023-04-26] MEDS: Piperacillin/Tazobactam 3.375 GM in Sodium Chloride 0.9% 100 ML IVPB SCH ×3 (04:00→20:06)
[2023-04-26 04:59] LABS: Hematocrit 34.6 % (42.0-52.0); Hemoglobin 11.1 g/dL (14.0-18.0); Mean Corpuscular HGB CONC 32.1 g/dL (32.0-36.0); Mean Corpuscular Volume 87.2 fl (78.0-98.0); Mean Platelet Volume 9.4 fL (7.4-10.4); Platelet Count 263 10x3/uL (130-400); Red Blood Cell (RBC) Count 3.97 mill/uL (4.70-6.10); White Blood Cell (WBC) Count 7.6 10x3/uL (4.8-10.8)
[2023-04-26 05:08] LABS: Delete Auto Diff?? YES; Manual Diff?? YES
[2023-04-26 05:25] LABS: Anion Gap 15 mmol/L (10-20); BUN (Urea Nitrogen) 16 mg/dL (8.9-20.6); Calc. Creatinine Clearance 201 mL/min (70-130); Calcium 9.6 mg/dL (7.8-10.44); Carbon Dioxide 24 mmol/L (22-29); Chloride 104 mmol/L (98-107); Estimated GFR 124; Glucose 114 mg/dL (70-105); Potassium 3.5 mmol/L (3.5-5.1); Sodium 139 mmol/L (136-145)
[2023-04-26] MEDS: Fentanyl CADD 100 ML IV SCH ×2 (05:33→19:04)
[2023-04-26 05:36] LABS: Band 4 % (5-11); CellaVision Operator ID lab.abc; Eosinophils 3 % (0-10); Lymphocytes 9 % (21-51); Metamyelocyte 1 % (0-0); Monocytes 8 % (0-10); Myelocyte 5 % (0-0); Neutrophil 70 % (42-75); Platelet Adequacy Comment Platelets Normal; RBC Morphology Within Normal Limits; Total Cell Count 100
[2023-04-26] MEDS: Ipratropium/Albuterol 3 ML NEB NEB SCH ×3 (07:18→18:37)
[2023-04-26 07:29] LABS: Actual Bicarbonate (HCO3a) 24.5 mEq/L (22-28); Base Excess (BEa) 0.9 mEq/L (-2.0 to +3.0); CO2 Tension 35.7 mmHg (35.0-45.0); Calcium, Ionized (arterial) 1.19 mmol/L (1.12-1.30); Carboxyhemoglobin (COHb) 0.3 gm% (0.0-3.0); Hematocrit-ABG 36 % (42.0-52.0); Hemoglobin (Hb) 12.2 g/dL (14.0-18.0); O2 Tension (PaO2), arterial 103.3 mmHg (80.0-100.0); Potassium - ABG Lab 3.73 mmol/L (3.70-5.30); pH, Arterial 7.455 (7.35-7.45)
[2023-04-26 07:31] LABS: Puncture Site RRA
[2023-04-26 07:32] LABS: ALV-art Gradient 137.275 mmHg (0-20); Peep/CPAP 7.5 cmH2O
[2023-04-26] MEDS ORDERED: ceFAZolin (BATCH) 2 GM in Premix Bag 1 BAG IVPB SCH (08:15)
[2023-04-26] MEDS: Senokot S 8.6-50 MG TAB PO SCH ×2 (09:12→20:18)
[2023-04-26] MEDS: Polyethylene Glycol 3350 17 GM Packet PO SCH (09:12)
[2023-04-26] MEDS: Potassium Chloride 20 MEQ in Premix Bag 1 BAG IVPB SCH ×2 (09:24→11:13)
[2023-04-26] MEDS: levETIRAcetam 500 MG/5 ML VIAL SLOW IVP SCH ×2 (09:24→20:18)
[2023-04-26] MEDS: Pantoprazole 40 MG VIAL IVP SCH (09:24)
[2023-04-26] MEDS ORDERED: CEFAZOLIN 2 GM in Sodium Chloride 0.9% 100 ML IVPB SCH (10:00)
[2023-04-26] MEDS ORDERED: Bupivacaine HCl 0.5%/Epinephrine 1:200,000/PF 30 ml Vial ONE (14:30)
[2023-04-26] MEDS ORDERED: Midazolam HCl 2 mg/2 ml Vial ONE (14:39)
[2023-04-26] MEDS ORDERED: fentaNYL 50 mcg/mL 1 mL Vial ONE ×2 (14:39→15:21)
[2023-04-26] MEDS ORDERED: PROPOFOL 200 MG/20 ML VIAL ONE (15:09)
[2023-04-26] MEDS ORDERED: Esmolol 100 MG/10 ML VIAL ONE (15:09)
[2023-04-26] MEDS ORDERED: Vecuronium 10 MG VIAL ONE (15:09)
[2023-04-26] MEDS ORDERED: Rocuronium Bromide 10 MG/ML (10ML VIAL) ONE (15:09)
[2023-04-27] MEDS: Propofol 1,000 MG/100 ML VIAL IV PRN ×4 (03:26→15:01)
[2023-04-27] MEDS: Piperacillin/Tazobactam 3.375 GM in Sodium Chloride 0.9% 100 ML IVPB SCH ×3 (03:26→20:31)
[2023-04-27] MEDS: Acetaminophen 650 MG/20.3 ML UDCUP PO PRN ×4 (03:41→22:16)
[2023-04-27] MEDS: Fentanyl CADD 100 ML IV SCH (05:59)
[2023-04-27] MEDS ORDERED: Fentanyl BOLUS 250 ML IVPB PRN (06:24)
[2023-04-27] MEDS ORDERED: Lorazepam 2 MG/ML VIAL SLOW IVP PRN (06:25)
[2023-04-27] MEDS ORDERED: Fentanyl CADD 100 ML IV SCH (06:30)
[2023-04-27 06:51] LABS: #Eosinphils 0.1 thou/uL (0.0-0.7); #Neutrophils 8.9 thou/uL (1.40-6.50); %Basophils 0.4 % (0.0-1.0); %Eosinophils 1.2 % (0.0-10.0); %Lymphocytes 7.3 % (21.0-51.0); %Monocytes 8.9 % (0.0-10.0); %Neutrophils 79.7 % (42.0-75.0); Hematocrit 37.1 % (42.0-52.0); Hemoglobin 12.2 g/dL (14.0-18.0); Mean Corpuscular HGB CONC 32.9 g/dL (32.0-36.0); Mean Corpuscular Hemoglobin 27.9 pg (27.0-31.0); Mean Corpuscular Volume 84.9 fl (78.0-98.0); Mean Platelet Volume 9.2 fL (7.4-10.4); Platelet Count 294 10x3/uL (130-400); RBC Distribution Width 12.3 % (11.5-14.5); Red Blood Cell (RBC) Count 4.37 mill/uL (4.70-6.10); White Blood Cell (WBC) Count 11.2 10x3/uL (4.8-10.8)
[2023-04-27 07:10] LABS: Anion Gap 16 mmol/L (10-20); BUN (Urea Nitrogen) 15 mg/dL (8.9-20.6); Calc. Creatinine Clearance 191 mL/min (70-130); Calcium 9.9 mg/dL (7.8-10.44); Carbon Dioxide 23 mmol/L (22-29); Chloride 103 mmol/L (98-107); Estimated GFR 122; Glucose 133 mg/dL (70-105); Sodium 138 mmol/L (136-145)
[2023-04-27] MEDS: Ipratropium/Albuterol 3 ML NEB NEB SCH ×3 (07:30→22:23)
[2023-04-27] MEDS: Polyethylene Glycol 3350 17 GM Packet PO SCH (08:39)
[2023-04-27] MEDS: Senokot S 8.6-50 MG TAB PO SCH ×2 (08:39→20:32)
[2023-04-27] MEDS: Pantoprazole 40 MG VIAL IVP SCH (08:39)
[2023-04-27] MEDS: levETIRAcetam 500 MG/5 ML VIAL SLOW IVP SCH ×2 (08:39→20:32)
[2023-04-27] MEDS: Enalaprilat Dihydrate 1.25 MG/ML VIAL SLOW IVP SCH (23:46)
[2023-04-28] MEDS: Ondansetron PF 4 MG/2 ML Vial IVP PRN ×3 (02:28→15:10)
[2023-04-28] MEDS: Propofol 1,000 MG/100 ML VIAL IV PRN (04:19)
[2023-04-28] MEDS: Piperacillin/Tazobactam 3.375 GM in Sodium Chloride 0.9% 100 ML IVPB SCH (04:19)
[2023-04-28 04:43] LABS: #Basophils 0.1 thou/uL (0.0-0.2); #Monocytes 1.8 thou/uL (0.11-0.59); #Neutrophils 17.7 thou/uL (1.40-6.50); %Basophils 0.2 % (0.0-1.0); %Eosinophils 0.1 % (0.0-10.0); %Lymphocytes 3.6 % (21.0-51.0); %Monocytes 8.9 % (0.0-10.0); %Neutrophils 85.9 % (42.0-75.0); Hematocrit 41.9 % (42.0-52.0); Hemoglobin 13.8 g/dL (14.0-18.0); Mean Corpuscular HGB CONC 32.9 g/dL (32.0-36.0); Mean Corpuscular Hemoglobin 28.3 pg (27.0-31.0); Mean Corpuscular Volume 85.9 fl (78.0-98.0); Mean Platelet Volume 9.2 fL (7.4-10.4); RBC Distribution Width 12.6 % (11.5-14.5); Red Blood Cell (RBC) Count 4.88 mill/uL (4.70-6.10); White Blood Cell (WBC) Count 20.6 10x3/uL (4.8-10.8)
[2023-04-28] MEDS: Acetaminophen 650 MG/20.3 ML UDCUP PO PRN ×2 (04:45→12:33)
[2023-04-28 04:54] LABS: Platelet Count 425 10x3/uL (130-400)
[2023-04-28 05:17] LABS: Anion Gap 18 mmol/L (10-20); BUN (Urea Nitrogen) 15 mg/dL (8.9-20.6); Calc. Creatinine Clearance 207 mL/min (70-130); Calcium 10.5 mg/dL (7.8-10.44); Carbon Dioxide 25 mmol/L (22-29); Chloride 100 mmol/L (98-107); Estimated GFR 125; Glucose 134 mg/dL (70-105); Potassium 3.8 mmol/L (3.5-5.1); Sodium 139 mmol/L (136-145)
[2023-04-28] MEDS: Enalaprilat Dihydrate 1.25 MG/ML VIAL SLOW IVP SCH ×3 (06:03→17:34)
[2023-04-28] MEDS: Ipratropium/Albuterol 3 ML NEB NEB SCH ×3 (07:38→18:30)
[2023-04-28] MEDS ORDERED: Lactated Ringer's 1,000 ML IV SCH (08:15)
[2023-04-28] MEDS ORDERED: Vancomycin 1 GM in Premix Bag 1 BAG IVPB SCH (09:00)
[2023-04-28] MEDS ORDERED: VANCOMYCIN 2 GRAM/500 ML BAG 2 GM in Premix Bag 1 BAG IVPB SCH (09:15)
[2023-04-28 09:28] LABS: Band 39 % (5-11); Lymphocytes 4 % (21-51); Metamyelocyte 1 % (0-0); Monocytes 6 % (0-10); Myelocyte 2 % (0-0); Neutrophil 48 % (42-75)
[2023-04-28] MEDS ORDERED: Meropenem 1 GM in Sodium Chloride 0.9% 100 ML IVPB SCH (09:30)
[2023-04-28 09:33] LABS: Platelet Adequacy Comment Appears Increased; Polychromasia SLIGHT = 2-3 cells (100X) (0-2/hpf)
[2023-04-28] MEDS: Lactated Ringer's 1,000 ML IV SCH ×2 (09:49→15:16)
[2023-04-28 09:51] LABS: Lactic Acid 0.9 mmol/L (0.5-2.2)
[2023-04-28 09:56] LABS: ALT (SGPT) 133 U/L (8-55); AST (SGOT) 43 U/L (5-34); Albumin 4.1 g/dL (3.5-5.0); Alkaline Phosphatase 123 U/L (40-110); Bilirubin, Direct 0.6 mg/dL (0.1-0.3); Protein, Total 8.4 g/dL (6.0-8.3)
[2023-04-28] MEDS: Senokot S 8.6-50 MG TAB PO SCH (09:58)
[2023-04-28] MEDS: Polyethylene Glycol 3350 17 GM Packet PO SCH (09:59)
[2023-04-28] MEDS: Saccharomyces boulardii 250 MG CAP PER TUBE SCH (09:59)
[2023-04-28] MEDS: levETIRAcetam 500 MG/5 ML VIAL SLOW IVP SCH ×2 (10:07→20:05)
[2023-04-28] MEDS: Pantoprazole 40 MG VIAL IVP SCH (10:07)
[2023-04-28 10:22] LABS: Bilirubin Moderate (Negative); Blood, Urine Large (Negative); Glucose, Urine (Dipstick) Negative (Negative); Ketone, Urine Trace mg/dL (Negative); Leukocyte Negative (Negative); Nitrite Negative (Negative); Protein, Urine (Dipstick) 100 mg/dL (Neg-Trace)
[2023-04-28 10:42] LABS: Clarity Hazy (Clear)
[2023-04-28 10:43] LABS: Specific Gravity, Urine 1.048 (1.002-1.036)
[2023-04-28 10:44] LABS: CAUTI Indications for Culture Fever or rigors; RBC/HPF Greater than 50 HPF (0-3)
[2023-04-28 10:45] LABS: Bacteria/HPF 1+ HPF (None Seen); Squamous Epithelial 0-3 HPF (0-3); Urine Culture Reflex No No
[2023-04-28] MEDS: Meropenem 1 GM in Sodium Chloride 0.9% 100 ML IVPB SCH (17:32)
[2023-04-28] MEDS ORDERED: Acetaminophen 500 MG TAB PO SCH (19:45)
[2023-04-28] MEDS: VANCOMYCIN 1.25 GM/250 ML BAG 1.25 GM in Premix Bag 1 BAG IVPB SCH (20:05)
[2023-04-28] MEDS: Morphine 2 MG/ML VIAL SLOW IVP PRN (22:21)
[2023-04-29] MEDS: Senokot S 8.6-50 MG TAB PO SCH ×3 (00:33→20:58)
[2023-04-29] MEDS: Enalaprilat Dihydrate 1.25 MG/ML VIAL SLOW IVP SCH ×5 (00:40→23:43)
[2023-04-29] MEDS: Meropenem 1 GM in Sodium Chloride 0.9% 100 ML IVPB SCH ×3 (00:40→17:23)
[2023-04-29] MEDS: Ondansetron PF 4 MG/2 ML Vial IVP PRN ×3 (01:08→20:35)
[2023-04-29] MEDS: Morphine 2 MG/ML VIAL SLOW IVP PRN ×2 (01:08→04:19)
[2023-04-29] MEDS: Lactated Ringer's 1,000 ML IV SCH ×3 (04:25→17:28)
[2023-04-29 04:29] LABS: #Basophils 0.1 thou/uL (0.0-0.2); #Eosinphils 0.1 thou/uL (0.0-0.7); #Monocytes 1.3 thou/uL (0.11-0.59); #Neutrophils 12.5 thou/uL (1.40-6.50); %Basophils 0.3 % (0.0-1.0); %Eosinophils 0.4 % (0.0-10.0); %Monocytes 8.6 % (0.0-10.0); %Neutrophils 81.6 % (42.0-75.0); Hematocrit 34.5 % (42.0-52.0); Hemoglobin 11.1 g/dL (14.0-18.0); Mean Corpuscular HGB CONC 32.2 g/dL (32.0-36.0); Mean Corpuscular Hemoglobin 28.2 pg (27.0-31.0); Mean Corpuscular Volume 87.8 fl (78.0-98.0); Mean Platelet Volume 9.2 fL (7.4-10.4); Platelet Count 319 10x3/uL (130-400); RBC Distribution Width 12.7 % (11.5-14.5); Red Blood Cell (RBC) Count 3.93 mill/uL (4.70-6.10); White Blood Cell (WBC) Count 15.3 10x3/uL (4.8-10.8)
[2023-04-29] MEDS: Acetaminophen 650 MG/20.3 ML UDCUP PO PRN ×2 (04:39→11:15)
[2023-04-29 04:56] LABS: Anion Gap 14 mmol/L (10-20); BUN (Urea Nitrogen) 17 mg/dL (8.9-20.6); Calc. Creatinine Clearance 200 mL/min (70-130); Calcium 9.5 mg/dL (7.8-10.44); Carbon Dioxide 24 mmol/L (22-29); Chloride 106 mmol/L (98-107); Estimated GFR 127; Glucose 110 mg/dL (70-105); Potassium 3.9 mmol/L (3.5-5.1); Sodium 140 mmol/L (136-145)
[2023-04-29] MEDS: Ipratropium/Albuterol 3 ML NEB NEB SCH ×3 (07:08→19:19)
[2023-04-29] MEDS: Polyethylene Glycol 3350 17 GM Packet PO SCH (07:48)
[2023-04-29] MEDS: levETIRAcetam 500 MG/5 ML VIAL SLOW IVP SCH ×2 (08:48→20:31)
[2023-04-29] MEDS: Pantoprazole 40 MG VIAL IVP SCH (08:52)
[2023-04-29] MEDS: Saccharomyces boulardii 250 MG CAP PER TUBE SCH (08:56)
[2023-04-29] MEDS: VANCOMYCIN 1.25 GM/250 ML BAG 1.25 GM in Premix Bag 1 BAG IVPB SCH (10:36)
[2023-04-29 20:25] LABS: Vancomycin, Trough 7.5 ug/mL
[2023-04-29] MEDS: Vancomycin 1.5 GRAM/300 ML BAG 1.5 GM in Premix Bag 1 BAG IVPB SCH (20:56)
[2023-04-30] MEDS: Meropenem 1 GM in Sodium Chloride 0.9% 100 ML IVPB SCH ×2 (00:48→08:09)
[2023-04-30] MEDS: Lactated Ringer's 1,000 ML IV SCH ×4 (00:49→23:26)
[2023-04-30 04:16] LABS: #Eosinphils 0.1 thou/uL (0.0-0.7); #Monocytes 0.8 thou/uL (0.11-0.59); #Neutrophils 9.5 thou/uL (1.40-6.50); %Basophils 0.3 % (0.0-1.0); %Eosinophils 0.9 % (0.0-10.0); %Lymphocytes 10.8 % (21.0-51.0); %Monocytes 6.5 % (0.0-10.0); %Neutrophils 80.7 % (42.0-75.0); Hematocrit 33.3 % (42.0-52.0); Hemoglobin 10.7 g/dL (14.0-18.0); Mean Corpuscular HGB CONC 32.1 g/dL (32.0-36.0); Mean Corpuscular Volume 87.2 fl (78.0-98.0); Mean Platelet Volume 9.2 fL (7.4-10.4); Platelet Count 327 10x3/uL (130-400); RBC Distribution Width 12.6 % (11.5-14.5); Red Blood Cell (RBC) Count 3.82 mill/uL (4.70-6.10); White Blood Cell (WBC) Count 11.8 10x3/uL (4.8-10.8)
[2023-04-30 04:40] LABS: Anion Gap 14 mmol/L (10-20); BUN (Urea Nitrogen) 14 mg/dL (8.9-20.6); Calc. Creatinine Clearance 227 mL/min (70-130); Calcium 8.9 mg/dL (7.8-10.44); Carbon Dioxide 22 mmol/L (22-29); Chloride 110 mmol/L (98-107); Estimated GFR 130; Glucose 99 mg/dL (70-105); Potassium 3.5 mmol/L (3.5-5.1); Sodium 142 mmol/L (136-145)
[2023-04-30] MEDS: Enalaprilat Dihydrate 1.25 MG/ML VIAL SLOW IVP SCH ×4 (05:44→23:22)
[2023-04-30] MEDS: Ipratropium/Albuterol 3 ML NEB NEB SCH ×3 (07:20→18:59)
[2023-04-30] MEDS: Vancomycin 1.5 GRAM/300 ML BAG 1.5 GM in Premix Bag 1 BAG IVPB SCH (08:09)
[2023-04-30] MEDS: levETIRAcetam 500 MG/5 ML VIAL SLOW IVP SCH ×2 (08:09→21:22)
[2023-04-30] MEDS: Potassium Chloride 20 MEQ in Premix Bag 1 BAG IVPB SCH ×2 (08:09→10:10)
[2023-04-30] MEDS: Pantoprazole 40 MG VIAL IVP SCH (08:10)
[2023-04-30] MEDS: Saccharomyces boulardii 250 MG CAP PER TUBE SCH (08:10)
[2023-04-30] MEDS: Ondansetron PF 4 MG/2 ML Vial IVP PRN ×2 (08:55→23:35)
[2023-04-30] MEDS: Polyethylene Glycol 3350 17 GM Packet PO SCH (09:01)
[2023-04-30] MEDS: Senokot S 8.6-50 MG TAB PO SCH ×2 (09:01→21:29)
[2023-04-30] MEDS: cefTRIAXone\\ROCEPHIN 2 GM in Sodium Chloride 0.9% 100 ML IVPB SCH (10:09)
[2023-05-01 04:05] LABS: #Eosinphils 0.2 thou/uL (0.0-0.7); #Monocytes 0.6 thou/uL (0.11-0.59); #Neutrophils 6.7 thou/uL (1.40-6.50); %Basophils 0.3 % (0.0-1.0); %Eosinophils 2.1 % (0.0-10.0); %Lymphocytes 14.3 % (21.0-51.0); %Neutrophils 75.4 % (42.0-75.0); Hematocrit 29.4 % (42.0-52.0); Hemoglobin 9.6 g/dL (14.0-18.0); Mean Corpuscular HGB CONC 32.7 g/dL (32.0-36.0); Mean Corpuscular Volume 85.7 fl (78.0-98.0); Platelet Count 331 10x3/uL (130-400); Red Blood Cell (RBC) Count 3.43 mill/uL (4.70-6.10); White Blood Cell (WBC) Count 8.9 10x3/uL (4.8-10.8)
[2023-05-01 04:32] LABS: Anion Gap 11 mmol/L (10-20); BUN (Urea Nitrogen) 10 mg/dL (8.9-20.6); Calc. Creatinine Clearance 253 mL/min (70-130); Calcium 8.9 mg/dL (7.8-10.44); Carbon Dioxide 22 mmol/L (22-29); Chloride 108 mmol/L (98-107); Estimated GFR 134; Glucose 102 mg/dL (70-105); Sodium 138 mmol/L (136-145)
[2023-05-01] MEDS ORDERED: Potassium Bicarbonate/Cit Ac 20 MEQ TAB PER TUBE SCH (05:00)
[2023-05-01] MEDS: Enalaprilat Dihydrate 1.25 MG/ML VIAL SLOW IVP SCH ×3 (05:11→17:41)
[2023-05-01 06:52] LABS: Phosphorus 2.4 mg/dL (2.3-4.7)
[2023-05-01] MEDS: Ipratropium/Albuterol 3 ML NEB NEB SCH ×3 (07:50→18:33)
[2023-05-01] MEDS: Polyethylene Glycol 3350 17 GM Packet PO SCH (08:06)
[2023-05-01] MEDS: Senokot S 8.6-50 MG TAB PO SCH (08:06)
[2023-05-01] MEDS: Pantoprazole 40 MG VIAL IVP SCH (08:10)
[2023-05-01] MEDS: Saccharomyces boulardii 250 MG CAP PER TUBE SCH (08:10)
[2023-05-01] MEDS: levETIRAcetam 500 MG/5 ML VIAL SLOW IVP SCH ×2 (08:10→21:28)
[2023-05-01] MEDS ORDERED: Magnesium 2 GM/50 ML(in water) 2 GM in Premix Bag 1 BAG IVPB SCH (09:00)
[2023-05-01] MEDS: cefTRIAXone\\ROCEPHIN 2 GM in Sodium Chloride 0.9% 100 ML IVPB SCH (09:39)
[2023-05-01] MEDS: Ondansetron PF 4 MG/2 ML Vial IVP PRN (09:43)
[2023-05-01 10:43] LABS: Potassium 3.6 mmol/L (3.5-5.1)
[2023-05-02] MEDS: Enalaprilat Dihydrate 1.25 MG/ML VIAL SLOW IVP SCH ×2 (00:26→06:10)
[2023-05-02] MEDS: Senokot S 8.6-50 MG TAB PO SCH ×3 (00:30→20:37)
[2023-05-02] MEDS ORDERED: Melatonin 3 MG TAB PER TUBE SCH (02:45)
[2023-05-02 03:39] LABS: #Eosinphils 0.2 thou/uL (0.0-0.7); #Monocytes 0.6 thou/uL (0.11-0.59); #Neutrophils 6.4 thou/uL (1.40-6.50); %Basophils 0.2 % (0.0-1.0); %Eosinophils 2.4 % (0.0-10.0); %Lymphocytes 13.8 % (21.0-51.0); %Neutrophils 75.8 % (42.0-75.0); Hematocrit 31.5 % (42.0-52.0); Hemoglobin 10.5 g/dL (14.0-18.0); Mean Corpuscular HGB CONC 33.3 g/dL (32.0-36.0); Mean Platelet Volume 8.7 fL (7.4-10.4); Platelet Count 364 10x3/uL (130-400); RBC Distribution Width 11.9 % (11.5-14.5); Red Blood Cell (RBC) Count 3.75 mill/uL (4.70-6.10); White Blood Cell (WBC) Count 8.5 10x3/uL (4.8-10.8)
[2023-05-02 04:03] LABS: Anion Gap 14 mmol/L (10-20); BUN (Urea Nitrogen) 10 mg/dL (8.9-20.6); Calc. Creatinine Clearance 262 mL/min (70-130); Calcium 8.8 mg/dL (7.8-10.44); Carbon Dioxide 21 mmol/L (22-29); Chloride 107 mmol/L (98-107); Estimated GFR 135; Glucose 106 mg/dL (70-105); Potassium 3.5 mmol/L (3.5-5.1); Sodium 138 mmol/L (136-145)
[2023-05-02 04:29] LABS: Phosphorus 2.9 mg/dL (2.3-4.7)
[2023-05-02] MEDS: Ipratropium/Albuterol 3 ML NEB NEB SCH ×3 (07:28→19:22)
[2023-05-02] MEDS ORDERED: Potassium Bicarbonate/Cit Ac 20 MEQ TAB PER TUBE SCH (08:00)
[2023-05-02] MEDS ORDERED: Magnesium 2 GM/50 ML(in water) 2 GM in Premix Bag 1 BAG IVPB SCH (09:00)
[2023-05-02] MEDS: Amlodipine 10 MG TAB PER TUBE SCH (09:10)
[2023-05-02] MEDS: Pantoprazole 40 MG VIAL IVP SCH (09:10)
[2023-05-02] MEDS: levETIRAcetam 500 MG/5 ML VIAL SLOW IVP SCH ×2 (09:10→20:37)
[2023-05-02] MEDS: Saccharomyces boulardii 250 MG CAP PER TUBE SCH (09:10)
[2023-05-02] MEDS: Polyethylene Glycol 3350 17 GM Packet PO SCH (10:40)
[2023-05-02] MEDS: cefTRIAXone\\ROCEPHIN 2 GM in Sodium Chloride 0.9% 100 ML IVPB SCH (11:17)
[2023-05-02 14:14] LABS: Potassium 3.8 mmol/L (3.5-5.1)
[2023-05-03] MEDS ORDERED: Melatonin 3 MG TAB PO SCH (03:00)
[2023-05-03 07:29] LABS: Magnesium 2.4 mg/dL (1.6-2.6)
[2023-05-03] MEDS: Ipratropium/Albuterol 3 ML NEB NEB SCH ×3 (08:29→18:59)
[2023-05-03] MEDS: Senokot S 8.6-50 MG TAB PO SCH ×2 (11:07→21:09)
[2023-05-03] MEDS: Pantoprazole 40 MG VIAL IVP SCH (11:07)
[2023-05-03] MEDS: Polyethylene Glycol 3350 17 GM Packet PO SCH (11:07)
[2023-05-03] MEDS: Amlodipine 10 MG TAB PER TUBE SCH (11:08)
[2023-05-03] MEDS: cefTRIAXone\\ROCEPHIN 2 GM in Sodium Chloride 0.9% 100 ML IVPB SCH (11:09)
[2023-05-03] MEDS: levETIRAcetam 500 MG/5 ML VIAL SLOW IVP SCH ×2 (11:09→21:09)
[2023-05-03] MEDS: Saccharomyces boulardii 250 MG CAP PER TUBE SCH (11:09)
[2023-05-03] MEDS: Melatonin 3 MG TAB PO SCH (21:09)
[2023-05-03] MEDS ORDERED: diphenhydrAMINE 50 MG/ML VIAL IVP SCH (23:59)
[2023-05-04] MEDS: Ipratropium/Albuterol 3 ML NEB NEB SCH ×3 (06:58→18:26)
[2023-05-04 09:06] LABS: #Eosinphils 0.2 thou/uL (0.0-0.7); #Monocytes 0.6 thou/uL (0.11-0.59); #Neutrophils 5.5 thou/uL (1.40-6.50); %Basophils 0.4 % (0.0-1.0); %Eosinophils 2.5 % (0.0-10.0); %Lymphocytes 18.9 % (21.0-51.0); %Monocytes 7.5 % (0.0-10.0); %Neutrophils 69.7 % (42.0-75.0); Hematocrit 38.6 % (42.0-52.0); Hemoglobin 12.8 g/dL (14.0-18.0); Mean Corpuscular HGB CONC 33.2 g/dL (32.0-36.0); Mean Corpuscular Hemoglobin 27.9 pg (27.0-31.0); Mean Corpuscular Volume 84.3 fl (78.0-98.0); Mean Platelet Volume 8.6 fL (7.4-10.4); Platelet Count 505 10x3/uL (130-400); RBC Distribution Width 12.8 % (11.5-14.5); Red Blood Cell (RBC) Count 4.58 mill/uL (4.70-6.10); White Blood Cell (WBC) Count 7.9 10x3/uL (4.8-10.8)
[2023-05-04] MEDS: Senokot S 8.6-50 MG TAB PO SCH ×2 (09:11→20:44)
[2023-05-04] MEDS: Polyethylene Glycol 3350 17 GM Packet PO SCH (09:11)
[2023-05-04] MEDS: Pantoprazole 40 MG VIAL IVP SCH (09:11)
[2023-05-04] MEDS: levETIRAcetam 500 MG/5 ML VIAL SLOW IVP SCH ×2 (09:11→20:44)
[2023-05-04] MEDS: Amlodipine 10 MG TAB PER TUBE SCH (09:11)
[2023-05-04] MEDS: Saccharomyces boulardii 250 MG CAP PER TUBE SCH (09:12)
[2023-05-04] MEDS: Melatonin 3 MG TAB PO SCH (20:44)
[2023-05-05] MEDS: diphenhydrAMINE 50 MG/ML VIAL IVP PRN (00:25)
[2023-05-05 04:43] LABS: Anion Gap 13 mmol/L (10-20); BUN (Urea Nitrogen) 16 mg/dL (8.9-20.6); Calc. Creatinine Clearance 196 mL/min (70-130); Calcium 10.4 mg/dL (7.8-10.44); Carbon Dioxide 21 mmol/L (22-29); Chloride 105 mmol/L (98-107); Estimated GFR 129; Glucose 103 mg/dL (70-105); Potassium 4.2 mmol/L (3.5-5.1); Sodium 135 mmol/L (136-145)
[2023-05-05] MEDS: Ipratropium/Albuterol 3 ML NEB NEB SCH (07:45)
[2023-05-05] MEDS: Amlodipine 10 MG TAB PER TUBE SCH (08:13)
[2023-05-05] MEDS: Senokot S 8.6-50 MG TAB PO SCH ×2 (08:13→20:27)
[2023-05-05] MEDS: Saccharomyces boulardii 250 MG CAP PER TUBE SCH (08:14)
[2023-05-05] MEDS: Polyethylene Glycol 3350 17 GM Packet PO SCH (08:14)
[2023-05-05] MEDS: Pantoprazole 40 MG VIAL IVP SCH (08:14)
[2023-05-05] MEDS: levETIRAcetam 500 MG/5 ML VIAL SLOW IVP SCH ×2 (08:14→20:27)
[2023-05-05] MEDS ORDERED: Ipratropium/Albuterol 3 ML NEB NEB PRN (08:40)
[2023-05-05] MEDS: Melatonin 3 MG TAB PO SCH (20:27)
[2023-05-05] MEDS: Acetaminophen 650 MG/20.3 ML UDCUP PO PRN (22:03)
[2023-05-06] MEDS: Amlodipine 10 MG TAB PER TUBE SCH (09:19)
[2023-05-06] MEDS: Saccharomyces boulardii 250 MG CAP PER TUBE SCH (09:20)
[2023-05-06] MEDS: Pantoprazole 40 MG VIAL IVP SCH (09:20)
[2023-05-06] MEDS: Senokot S 8.6-50 MG TAB PO SCH ×2 (09:20→21:30)
[2023-05-06] MEDS: Polyethylene Glycol 3350 17 GM Packet PO SCH (09:20)
[2023-05-06] MEDS: levETIRAcetam 500 MG/5 ML VIAL SLOW IVP SCH ×2 (11:06→21:30)
[2023-05-06] MEDS: Melatonin 3 MG TAB PO SCH (21:30)
[2023-05-07] MEDS: Polyethylene Glycol 3350 17 GM Packet PO SCH (09:31)
[2023-05-07] MEDS: Saccharomyces boulardii 250 MG CAP PER TUBE SCH (09:31)
[2023-05-07] MEDS: Amlodipine 10 MG TAB PER TUBE SCH (09:31)
[2023-05-07] MEDS: Senokot S 8.6-50 MG TAB PO SCH ×2 (09:31→21:03)
[2023-05-07] MEDS: levETIRAcetam 500 MG/5 ML VIAL SLOW IVP SCH (10:49)
[2023-05-07] MEDS: Melatonin 3 MG TAB PO SCH (21:03)
[2023-05-07] MEDS: diphenhydrAMINE 50 MG/ML VIAL IVP PRN (23:17)
[2023-05-08 05:06] VITALS: BMI 26.2
[2023-05-08] MEDS: Saccharomyces boulardii 250 MG CAP PER TUBE SCH (09:14)
[2023-05-08] MEDS: Amlodipine 10 MG TAB PER TUBE SCH (09:14)
[2023-05-08] MEDS: Senokot S 8.6-50 MG TAB PO SCH ×2 (09:14→21:00)
[2023-05-08] MEDS: Polyethylene Glycol 3350 17 GM Packet PO SCH (09:17)
[2023-05-08] MEDS: Melatonin 3 MG TAB PO SCH (21:11)
[2023-05-08] MEDS: Acetaminophen 650 MG/20.3 ML UDCUP PO PRN (22:16)
[2023-05-09] MEDS: Saccharomyces boulardii 250 MG CAP PER TUBE SCH (09:25)
[2023-05-09] MEDS: Amlodipine 10 MG TAB PER TUBE SCH (09:25)
[2023-05-09] MEDS: Senokot S 8.6-50 MG TAB PO SCH ×2 (09:26→21:23)
[2023-05-09] MEDS: Polyethylene Glycol 3350 17 GM Packet PO SCH (09:26)
[2023-05-09] MEDS: Melatonin 3 MG TAB PO SCH (21:23)
[2023-05-10] MEDS: Senokot S 8.6-50 MG TAB PO SCH (09:18)
[2023-05-10] MEDS: Saccharomyces boulardii 250 MG CAP PER TUBE SCH (09:18)
[2023-05-10] MEDS: Amlodipine 10 MG TAB PER TUBE SCH (09:18)
[2023-05-10] MEDS: Polyethylene Glycol 3350 17 GM Packet PO SCH (09:18)
[2023-05-10 11:56] VITALS: BP 122/78; TEMP 97.4
== END 2023-05-10 12:44 | DRG 3 ==
LOC: ERS 02:12 → SDC/OP 04:04 → CCU 04:18 → IMCU/EMU 05-02 16:44 → SJJU 05-05 15:36
PROVIDERS: ADMIT Surgery; ATTEND Surgery
PROC: 5A1955Z Respiratory Ventilation, Greater than 96 Consecutive Hours (ICD-10-PCS; 2023-04-17)
PROC: 00C30ZZ Extirpation of Matter from Intracranial Epidural Space, Open Approach (ICD-10-PCS; 2023-04-17)
PROC: 00H032Z Insertion of Monitoring Device into Brain, Percutaneous Approach (ICD-10-PCS; 2023-04-17)
PROC: 0NS004Z Reposition Skull with Internal Fixation Device, Open Approach (ICD-10-PCS; 2023-04-17)
PROC: 4A103BD Monitoring of Intracranial Pressure, Percutaneous Approach (ICD-10-PCS; 2023-04-17)
PROC: 0BH17EZ Insertion of Endotracheal Airway into Trachea, Via Natural or Artificial Opening (ICD-10-PCS; 2023-04-17)
PROC: 4A133R1 Monitoring of Arterial Saturation, Peripheral, Percutaneous Approach (ICD-10-PCS; 2023-04-17)
PROC: 05H633Z Insertion of Infusion Device into Left Subclavian Vein, Percutaneous Approach (ICD-10-PCS; 2023-04-18)
PROC: 3E033XZ Introduction of Vasopressor into Peripheral Vein, Percutaneous Approach (ICD-10-PCS; 2023-04-18)
PROC: 009600Z Drainage of Cerebral Ventricle with Drainage Device, Open Approach (ICD-10-PCS; 2023-04-20)
PROC: 06HY33Z Insertion of Infusion Device into Lower Vein, Percutaneous Approach (ICD-10-PCS; 2023-04-20)
PROC: 0D20XUZ Change Feeding Device in Upper Intestinal Tract, External Approach (ICD-10-PCS; 2023-04-20)
PROC: 0B110Z4 Bypass Trachea to Cutaneous, Open Approach (ICD-10-PCS; principal; 2023-04-26)
PROC: 0DH64UZ Insertion of Feeding Device into Stomach, Percutaneous Endoscopic Approach (ICD-10-PCS; 2023-04-26)
PROC: 3E0G76Z Introduction of Nutritional Substance into Upper GI, Via Natural or Artificial Opening (ICD-10-PCS; 2023-04-26)
PROC: 5A09357 Assistance with Respiratory Ventilation, Less than 24 Consecutive Hours, Continuous Positive Airway Pressure (ICD-10-PCS; 2023-05-06)
DX: S06.4XAA Epidural hemorrhage with loss of consciousness status unknown, initial encounter (principal); R57.1 Hypovolemic shock; G93.41 Metabolic encephalopathy; A41.9 Sepsis, unspecified organism; J96.01 Acute respiratory failure with hypoxia; S27.322A Contusion of lung, bilateral, initial encounter; J90 Pleural effusion, not elsewhere classified; E27.40 Unspecified adrenocortical insufficiency; J98.11 Atelectasis; E46 Unspecified protein-calorie malnutrition; S02.19XA Other fracture of base of skull, initial encounter for closed fracture; S06.6XAA Traumatic subarachnoid hemorrhage with loss of consciousness status unknown, initial encounter; S06.5XAA Traumatic subdural hemorrhage with loss of consciousness status unknown, initial encounter; R13.10 Dysphagia, unspecified; M21.379 Foot drop, unspecified foot; M21.339 Wrist drop, unspecified wrist; D72.825 Bandemia; J04.10 Acute tracheitis without obstruction; B96.1 Klebsiella pneumoniae [K. pneumoniae] as the cause of diseases classified elsewhere; Z68.26 Body mass index [BMI] 26.0-26.9, adult; G47.33 Obstructive sleep apnea (adult) (pediatric); V86.95XA Unspecified occupant of 3- or 4- wheeled all-terrain vehicle (ATV) injured in nontraffic accident, initial encounter; R40.2432 Glasgow coma scale score 3-8, at arrival to emergency department
CPT/HCPCS: 31500; 36415; 36416; 36600; 70450; 70486; 71045; 71260; 72125; 74018; 74177; 74230; 80048; 80076; 80202; 80306; 80307; 81001; 82150; 82533; 82805; 83605; 83690; 83735; 83930; 83935; 84100; 84145; 84295; 84300; 85025; 86850; 86900; 86901; 87070; 87077; 87086; 87186; 87205; 90471; 90715; 93005; 93970; 94002; 94003; 94640; 96365; 96368; 96375; 97139; C1713; C1889; C9113; G0390; J0171; J0360; J0696; J1200; J1650; J1720; J1815; J1940; J1953; J2001; J2060; J2150; J2185; J2250; J2272; J2405; J2543; J2704; J3010; J3370; J3475; J3480; J3490; J7050; J7120; J7620; J7799; Q9967